=== PATIENT | male | born 1980 | race Caucasian/White ===

== ENCOUNTER 2019-06-23 11:58 | Emergency (ER) | payer OTHER, SELFPAY ==
[2019-06-23 12:09] VITALS: BP 129/79; PULSE 78; RESP 14; TEMP 37.6; O2SAT 99
--- NOTE | 2019-06-23 12:41 | ED.URI ---
HPI - URI/Sore Throat General Chief Complaint: Upper Respiratory Infection Stated Complaint: Fever/Cough/Chills/Dizzy Time Seen by Provider: 06/23/19 12:41 Source: patient and family History of Present Illness HPI Narrative: Patient presents with a 2-day history of generalized body aches fever cough runny nose. Patient states his family members had influenza A last week. Patient denies any shortness of breath no chest pain states is a normally healthy individual. MD elicited complaint: nasal congestion Related Data Allergies Allergy/AdvReac Type Severity Reaction Status Date / Time iodine Allergy Severe swelling Verified 04/27/17 15:26 shellfish derived Allergy Severe swelling Verified 04/27/17 15:26 No Known Drug Allergies Allergy Unknown Verified 04/27/17 15:26 Review of Systems Review of Systems: Narrative: CONSTITUTIONAL: Denies chills, or sweats. Reports fever and generalized body aches EYES: Denies visual changes, redness, or discharge. ENT: Denies otalgia. Reports nasal congestion runny nose and sore throat CARDIOVASCULAR: Denies chest pain, palpitations, or edema. RESPIRATORY: Denies dyspnea. Reports occasional cough GASTROINTESTINAL: Denies abdominal pain, nausea, vomiting, or diarrhea. GENITOURINARY: Denies dysuria or hematuria. SKIN: Denies rash or itching. MUSCULOSKELETAL: Denies back pain, joint pain, or myalgia. Reports generalized body aches NEUROLOGIC: Denies headache, numbness, or weakness. PSYCHIATRIC: Denies anxiety or depression. PMFSH Comments At time of signature, agree with nursing past medical, surgical, social and family history. There is no relevant family history pertinent to the presenting complaint Exam Narrative: Exam Narrative: The patient is a well-developed, well-nourished in no acute distress. SKIN: Skin is warm and dry without erythema, swelling or exudate. There is good turgor. No tenting. HEAD: Atraumatic. Normocephalic. No temporal or scalp tenderness. EYES: Moist and bright. Sclera and conjunctivae normal. No discharge. PERRLA. Extraocular motions intact. Gross visual acuity intact. EARS: Pinna is normal shape and contour. Clear external auditory canals. TM pearly harrington with good cone of light, no erythema or suppuration. Bilateral cerumen noted no gross hearing deficit. NOSE: pink, moist mucosa with good air movement. Clear rhinorrhea without nasal flaring. Septum midline. Mouth: moist mucous membranes. THROAT; mild erythema noted to posterior oropharynx with moderate postnasal drainage. Without exudate or ulceration.. Uvula midline. Normal movement of soft palate. NECK: Supple and nontender with full range of motion without discomfort. No meningeal signs. LUNGS: Equal and bilateral breath sounds without wheezes, rales or rhonchi. CHEST: The chest wall is without retractions or use of accessory muscles. HEART: Has a regular rate and rhythm without murmur, gallops, click or rub. ABDOMEN: Soft, nontender with positive active bowel sounds. No rebound tenderness. EXTREMITIES: Without cyanosis, clubbing or edema. Equal 2+ distal pulses and 2 second capillary refill noted. NEUROLOGIC: alert, active, . The patient moves all extremities with normal muscle strength. Normal muscle tone is noted. Normal coordination is noted. NO focal neurological findings noted. Course Vital Signs Vital signs: Vital Signs Temperature 37.6 C H 06/23/19 12:09 Pulse Rate 78 06/23/19 12:09 Respiratory Rate 14 06/23/19 12:09 Blood Pressure 129/79 06/23/19 12:09 Pulse Oximetry 99 06/23/19 12:09 Temperature 37.6 C H 06/23/19 12:09 Pulse Rate 78 06/23/19 12:09 Respiratory Rate 14 06/23/19 12:09 Blood Pressure 129/79 06/23/19 12:09 Pulse Oximetry 99 06/23/19 12:09 Addressed elevated BP today. Today's blood pressure higher than recommended range. Discussed importance of follow -up with PCP and possible emergency manager effects/cardiovascular events related to HTN. Currently patient denies head
== END 2019-06-23 12:53 | disposition home or self-care (01) ==
PROVIDERS: Emergency Provider Nurse Practitioner Family
DX: J10.1 Influenza due to other identified influenza virus with other respiratory manifestations (principal)
CPT/HCPCS: 87804; 99213; G0463

== ENCOUNTER 2021-09-19 16:19 | Emergency (ER) | payer OTHER, SELFPAY ==
[2021-09-19 16:24] VITALS: BP 120/72; PULSE 90; RESP 16; TEMP 37.4; O2SAT 98
--- NOTE | 2021-09-19 16:47 | ED.URI ---
HPI - URI/Sore Throat General Chief Complaint: Fever Stated Complaint: fever nausea aches Time Seen by Provider: 09/19/21 16:47 Source: patient Mode of arrival: ambulatory Limitations: no limitations History of Present Illness HPI Narrative: Mr. Luna is a 40-year-old male patient presenting to the clinic today with complaints of fever of 101.5, nausea, body aches, cough, and chills. He reports that the symptoms began yesterday. He took a COVID test yesterday and was negative. He denies any known exposure to anyone with COVID, flu, or strep. He denies any chest pain or shortness of breath. Related Data Allergies Allergy/AdvReac Type Severity Reaction Status Date / Time iodine Allergy Severe swelling Verified 09/19/21 16:35 shellfish derived Allergy Severe swelling Verified 09/19/21 16:35 Review of Systems Review of Systems: Pertinent positives per HPI. Patient denies any rash, headache, visual changes, dizziness, runny nose, sore throat, shortness of breath, chest pain, palpitations, vomiting, diarrhea, constipation, abdominal pain, or any urinary issues. PMFSH Comments At the time of my signature, I reviewed and agree with the nursing past medical, surgical, social, and family history. There is no relevant family history pertinent to the patient complaint. Exam Narrative: General: Well-developed, well nourished, in no apparent distress Head: Normocephalic, atraumatic Eyes: Pupils equally round and reactive to light bilaterally, EOM intact, sclera and conjunctive clear, no discharge, lids normal Ears: TMs intact and clear, ear canals clear, no drainage, grossly hearing normal. Nose: Nares patent, no discharge, no inflammation, no sinus tenderness. Mouth: Oropharynx without lesions or masses, good dentition, MMM. Neck: Supple, trachea midline, no enlargement of anterior or posterior cervical nodes, no thyroid masses or goiter palpable. Cardio: Regular rate and rhythm, s1 and s2 normal, no murmur appreciated. Resp: Clear to auscultation bilaterally anteriorly and posteriorly, no rhonchi, rales, wheezing or rubs Abdomen: Soft, pliable, nontender to palpation, no organomegaly, bowel sounds present all 4 quadrants, no CVAT tenderness Course Course Emergency Course: Portions of this record may have been created with voice recognition software. Level of Care: Express Care Visit Vital Signs Vital signs: Vital Signs Temperature 37.4 C 09/19/21 16:24 Pulse Rate 90 09/19/21 16:24 Respiratory Rate 16 09/19/21 16:24 Blood Pressure 120/72 09/19/21 16:24 Pulse Oximetry 98 09/19/21 16:24 Oxygen Delivery Room Air 09/19/21 16:24 Temperature 37.4 C 09/19/21 16:24 Pulse Rate 90 09/19/21 16:24 Respiratory Rate 16 09/19/21 16:24 Blood Pressure 120/72 09/19/21 16:24 Pulse Oximetry 98 09/19/21 16:24 Oxygen Delivery Room Air 09/19/21 16:24 Vital signs reviewed MDM - URI/Sore Throat MDM Narrative Medical decision making narrative: At the time of visit patient is resting comfortably on the exam table. He reports that he had taken 1 COVID test yesterday and it was negative. Influenza testing was obtained and negative in the clinic today. Rapid COVID test completed in the clinic today and was negative. I suspect the patient has viral syndrome and I will send a prescription for some Zofran for nausea. Differential Diagnosis Differential diagnosis: Likely upper respiratory infection, croup, sinusitis, viral infection, bronchitis, influenza and pharyngitis Lab Data Labs: Lab Results 09/19/21 Range/Units 16:33 POC SARS CoV-2 Ag Negative (Negative) Influenza A Screen Negative Reference Range: Negative Influenza B Screen Negative Reference Range: Negative Discharge Plan Discharge Clinical Impression: Acute viral syndrome Patient
== END 2021-09-19 17:40 | disposition home or self-care (01) ==
PROVIDERS: Emergency Provider Nurse Practitioner Family
DX: B34.9 Viral infection, unspecified (principal); Z20.822 Contact with and (suspected) exposure to COVID-19
CPT/HCPCS: 87426; 87804; 99213; C9803; G0463

== ENCOUNTER 2022-01-24 19:31 | Emergency (ER) | payer OTHER, SELFPAY ==
[2022-01-24 19:32] VITALS: BP 131/71; PULSE 84; RESP 16; TEMP 36.6; O2SAT 98
--- NOTE | 2022-01-24 19:34 | ED.SKABFB ---
HPI - Skin/Abscess/Foreign Bdy General Chief complaint: Skin/Abscess/Foreign Body Stated complaint: Boil on right butt cheek Time Seen by Provider: 01/24/22 19:34 Source: patient Mode of arrival: ambulatory Limitations: no limitations History of Present Illness HPI narrative: Mr. Luna is a 41-year-old male patient presenting to the clinic today with complaints of a boil on his right butt cheek x4 days. He reports that the area has grown larger within the last 24 hours. Area is very painful and tender. No known insect bite or sting. No history of MRSA or staph infections in the past Related Data Allergies Allergy/AdvReac Type Severity Reaction Status Date / Time iodine Allergy Severe swelling Verified 01/24/22 19:45 shellfish derived Allergy Severe swelling Verified 01/24/22 19:45 Review of Systems Review of Systems: Pertinent positives per HPI. Patient denies any fever, chills, rash, headache, visual changes, dizziness, cough, runny nose, sore throat, shortness of breath, chest pain, palpitations, nausea, vomiting, diarrhea, constipation, abdominal pain, or any urinary issues. PMFSH Comments At the time of my signature, I reviewed and agree with the nursing past medical, surgical, social, and family history. There is no relevant family history pertinent to the patient complaint. Exam Narrative: General: Well-developed, well nourished, in no apparent distress Head: Normocephalic, atraumatic. Cardio: Regular rate and rhythm, s1 and s2 normal, no murmur appreciated. Resp: Clear to auscultation bilaterally, no rhonchi, rales, wheezing or rubs. Integumentary: Reinholds, warm, and dry, abscess with redness and induration measuring 3-1/2 x 5 cm. Nonfluctuant and tender to palpation with erythema. Course Course Emergency Course: Portions of this record may have been created with voice recognition software. Level of Care: Express Care Visit Vital Signs Vital signs: Vital signs reviewed MDM - Skin/Abscess/Foreign Bdy MDM Narrative Medical decision making narrative: At the time of visit patient is resting comfortably in the exam table. Abscess is nonfluctuant and very tender and erythemic to palpation. I do not feel at this time that the abscess is drainable. We will place the patient on doxycycline and have him follow-up in the clinic when the abscess becomes fluctuant. Supportive measures were discussed with the patient he voiced understanding of discharge instructions and agrees to treatment plan Differential Diagnosis Differential diagnosis: Likely abscess of skin or subcutaneous tissue, cellulitis and insect bites Discharge Plan Discharge Clinical Impression: Abscess Patient Disposition: Home, Self-Care Condition: Stable Instructions: Antibiotic Form, Abscess (ED) Additional Instructions: Abscess is firm at this time and do not recommend incision and drainage Take doxycycline as prescribed Warm compresses to the affected area as discussed-apply for 15 minutes every 1-2 hours May take Tylenol/Motrin as needed for pain or fever Follow-up with your PCP in 3 to 5 days if symptoms persist or sooner if they are worse May return to the clinic if/when abscess becomes fluctuant-we can do a an incision and drainage and help alleviate pressure, pain and allow this to heal quicker Prescriptions: New doxycycline monohydrate 100 mg tablet 100 mg PO BID 10 Days Qty: 20 0RF Follow-up/Referrals: PHYSICIAN,PRODUCTION CONTROL SPECIALIST [Primary Care Provider] - Time of Disposition: 19:49 Quality NIHSS Nursing Documentation ED NIHSS nursing documentation: reviewed/agree
== END 2022-01-24 19:52 | disposition home or self-care (01) ==
PROVIDERS: Emergency Provider Nurse Practitioner Family
DX: L02.31 Cutaneous abscess of buttock (principal)
CPT/HCPCS: 99213; G0463